=== PATIENT | female | born 1980 | race Caucasian/White ===

== ENCOUNTER → 2018-08-16 | Outpatient (REF) | payer OTHER | LOC: M SMT 17:29 | PROVIDERS: ATTEND Urology | DX: N20.0 Calculus of kidney (principal) ==

== ENCOUNTER → 2018-08-16 | Outpatient (CLI) | payer OTHER ==
--- NOTE | 2018-08-16 15:23 | REP ---
HISTORY: History of renal calculi. COMPARISON: None. The intestinal gas pattern is nonspecific. The organ silhouettes in so far as delineated are within normal limits. The right nephric silhouette is completely obscured by bowel content. There are three round calcifications in the pelvis consistent with phleboliths, two on the left and one on the right. Also on the right there is a somewhat irregular 5 mm sized calcification possibly reflecting a distal ureterolith. The osseous structures are within normal limits. IMPRESSION: Possible distal right ureterolith as described above. Electronically Signed by Horace Arnett DO 08/16/2018 03:56 P
[2018-08-16 17:40] LABS: BASO # 0.1 10^3/uL (0.0-0.2); BASO % 0.5 % (0.0-1.0); EOS # 0.1 10^3/uL (0.0-0.50); EOS % 0.8 % (0.0-3.0); HEMOGLOBIN 14.6 g/dl (12.0-15.5); LYMPH # 3.4 10^3/uL (1.5-4.5); LYMPH % 26.5 % (24.0-44.0); MEAN CORPUSCULAR HEMOGLOBIN 29.4 pg (27.0-33.0); MEAN CORPUSCULAR HGB CONC 32.4 g/dl (32.0-36.5); MEAN CORPUSCULAR VOLUME 90.7 fl (80.0-96.0); MONO # 0.9 10^3/uL (0.0-0.8); MONO % 7.2 % (0.0-5.0); NEUTROPHILS # 8.4 10^3/uL (1.8-7.7); NEUTROPHILS % 64.8 % (36.0-66.0); PLATELET COUNT, AUTOMATED 321 10^3/uL (150-450); RED BLOOD COUNT 4.96 10^6/uL (4.00-5.40)
[2018-08-16 17:41] LABS: BLOOD UREA NITROGEN 10 MG/DL (7-18); CALCIUM LEVEL 9.7 MG/DL (8.5-10.1); CARBON DIOXIDE LEVEL 28 MEQ/L (21-32); CHLORIDE LEVEL 106 MEQ/L (98-107); CREATININE FOR GFR 0.91 MG/DL (0.55-1.30); GLOMERULAR FILTRATION RATE > 60.0 (>60); GLUCOSE, FASTING 88 MG/DL (70-100); POTASSIUM SERUM 4.2 MEQ/L (3.5-5.1); SODIUM LEVEL 143 MEQ/L (136-145)
== END ==
LOC: M SMT 14:14
PROVIDERS: ATTEND Urology
DX: Z87.442 Personal history of urinary calculi (principal)
CPT/HCPCS: 36415; 74018; 80048; 81002; 85025; 87086; G0463

== ENCOUNTER → 2018-08-21 | Outpatient (CLI) | payer OTHER ==
--- NOTE | 2018-08-21 14:37 | REP ---
Ultrasound for renal calculus: Comparison is the plain film abdomen study dated 08/16/2018. The patient complains of left flank pain. Right kidney measures 10 x 405.6 x 4.1 cm. Left kidney measures 11.2 x 4.6 x 5.6 cm. The kidneys are normal size. Renal cortical echogenicity is normal bilaterally. There is no hydronephrosis on the right on the left. There is no hydroureter on the right on the left. There are no solid renal masses on the right on the left. There is a right lower pole cyst measuring 12 x 10 x 2 mm. There is a 6 x 7 mm echogenic focus in the right renal lower pole compatible with renal calculus. There is a 4 x 5 mm echogenic focus in the left renal lower pole compatible with calculus. Bladder: The bladder is adequately distended. No bladder wall nodules or masses. With color Doppler ultrasound. There are bilateral ureteral jets into the bladder. Impression: There is a small echogenic focus in the lower pole of each kidney compatible with bilateral renal calculi. There are bilateral ureteral jets into the bladder indicating there is no ureteral obstruction. There is a right renal lower pole cyst. Electronically Signed by Tirso Heredia MD 08/21/2018 02:29 P
== END ==
LOC: M RAD 13:31 → EDUNIT# 14:00
PROVIDERS: ATTEND Urology
DX: N20.0 Calculus of kidney (principal); N28.1 Cyst of kidney, acquired

== ENCOUNTER → 2018-10-14 | Outpatient (CLI) | payer OTHER ==
--- NOTE | 2018-10-15 10:26 | REP ---
CT abdomen and pelvis without IV or oral contrast: History: Kidney stone. Comparison KUB study August 16, 2018. CT findings: Preliminary digital medical receptionist radiograph demonstrates an unremarkable bowel gas pattern. The lung bases are clear on axial CT images. The liver and the spleen are normal in size, homogeneous in texture. No abnormality is noted in the pancreas . The gallbladder is small and contracted. No adrenal lesion is observed. There is no evidence of hydronephrosis on either side. There are small intrarenal calculi in both kidneys. 2-3 mm calculi are noted bilaterally. There are two observable calcific densities in the lower pole on the left. There are three observable calcific opacities on the right, one in the upper pole, one at mid pole level, and one in the lower pole. No ureteral stone is seen. No bladder calculus is observed. No uterine or ovarian lesion is seen. Small and large intestinal bowel loops are normal in the abdomen and pelvis. No abdominal wall defect or bony destructive lesion is seen. Impression: Bilateral intrarenal nephrolithiasis. Two to three small intrarenal calculi in each kidney, 2-3 mm in size. No hydronephrosis seen. Electronically Signed by Jones Flores MD 10/15/2018 07:10 P
== END ==
LOC: M RAD 16:12
PROVIDERS: ATTEND Specialist
DX: N20.0 Calculus of kidney (principal)

== ENCOUNTER → 2020-04-07 | Outpatient (REF) | payer OTHER ==
[2020-04-07 19:01] LABS: APPEARANCE, URINE CLEAR (CLEAR); BACTERIA, URINE AUTO NEGATIVE (NEGATIVE); BILIRUBIN, URINE AUTO NEGATIVE (NEGATIVE); BLOOD, URINE BLOOD NEGATIVE (NEGATIVE); COLOR, URINE STRAW (YELLOW); GLUCOSE, URINE (UA) AUTO NEGATIVE (NEGATIVE); KETONE, URINE AUTO NEGATIVE (NEGATIVE); LEUKOCYTE ESTERASE, URINE AUTO NEGATIVE (NEGATIVE); NITRITE, URINE AUTO NEGATIVE (NEGATIVE); PROTEIN, URINE AUTO NEGATIVE (NEGATIVE); RBC, URINE AUTO 2 /HPF (0-3); SPECIFIC GRAVITY URINE AUTO 1.008 (1.002-1.035); SQUAMOUS EPITHELIAL CELL UR AU 1 /HPF (0-6); UROBILINOGEN, URINE AUTO 0.2 mg/dL (0.0-2.0); WBC, URINE AUTO 3 /HPF (0-3)
== END ==
LOC: M LAB REF 16:51
PROVIDERS: ATTEND Nurse Practitioner Family
DX: N39.41 Urge incontinence (principal)

== ENCOUNTER → 2020-05-11 | Outpatient (CLI) | payer OTHER ==
--- NOTE | 2020-05-11 12:33 | REPVR ---
PROCEDURE INFORMATION: Exam: MR Lumbar Spine Without Contrast Exam date and time: 05/11/2020 11:12 AM Age: 39 years old Clinical indication: Low back pain; Additional info: Lbp w/ ddd TECHNIQUE: Imaging protocol: Multiplanar magnetic resonance images of the lumbar spine without intravenous contrast. COMPARISON: No relevant prior studies available. FINDINGS: Vertebrae: There is mild accentuation of the normal lumbar lordosis. There is no fracture or listhesis. Spinal cord: Normal signal. No cord compression. L1-L2: No significant disc disease. No significant spinal canal stenosis. No neural foraminal stenosis. L2-L3: There is shallow disc bulging. The spinal canal and neural foramina are patent.. L3-L4: No significant disc disease. No significant spinal canal stenosis. No neural foraminal stenosis. L4-L5: No significant disc disease. No significant spinal canal stenosis. No neural foraminal stenosis. L5-S1: No significant disc disease. No significant spinal canal stenosis. No neural foraminal stenosis. Soft tissues: Unremarkable. IMPRESSION: No significant degenerative disc disease or spondylosis. No canal or neural foraminal compromise. Electronically signed by: Gracie Francis On 05/11/2020 12:32:47 PM
== END ==
LOC: M PLARAD 09:59
PROVIDERS: ATTEND Nurse Practitioner Family
DX: M54.9 Dorsalgia, unspecified (principal); M51.9 Unspecified thoracic, thoracolumbar and lumbosacral intervertebral disc disorder